=== PATIENT | male | born 1930 | race African-American/Black ===

== ENCOUNTER 2020-08-16 16:07 | Inpatient (IN) | payer MEDICARE, OTHER ==
[2020-08-16] VITALS (12 sets, daily range): BP systolic 90–182; BP diastolic 47–82
[~2020-08-16] VITALS: Ht 188 cm; Wt 65.8 kg
[2020-08-16] MEDS ORDERED: ACETAMINOPHEN 325MG TABLET PO ONE (17:30)
[2020-08-16] MEDS ORDERED: CLONIDINE 0.2MG TABLET PO ONE (17:30)
[2020-08-16 19:34] LABS: BASOPHILS % 1.2 % (0.0-2.0); EOSINOPHILS % 0.1 % (0.0-5.0); HEMOGLOBIN. 13.8 g/dL (14.0-18.0); LYMPHOCYTES % 21.2 % (20.0-50.0); MEAN CORPUSCULAR HEMOGLOBIN 30.3 pg (28.0-32.0); MEAN CORPUSCULAR VOLUME 89.9 fL (80.0-94.0); MEAN PLATELET VOLUME 9.7 fl (7.4-10.4); NEUTROPHILS % 70.5 % (40.0-76.0); PLATELET 210 x1000/uL (130-400); RED BLOOD CELL COUNT 4.56 mill/uL (4.7-6.1); RED CELL DISTRIBUTION WIDTH 15.9 % (11.6-14.6)
[2020-08-16 19:40] LABS: CHLORIDE 106 mEq/L (98-107)
[2020-08-16] MEDS ORDERED: NICARDIPINE 40MG/200ML PREMIX 200 ML IV STA (20:26)
[2020-08-16] MEDS ORDERED: SODIUM CHLORIDE 0.9% 1,000 ML IV ONE (20:30)
[2020-08-16] MEDS ORDERED: LEVETIRACETAM 500MG PREMIX 100 ML IV ONE (20:30)
[2020-08-16 20:43] LABS: PARTIAL THROMBOPLASTIN TIME 27.8 sec (23.4-31.0); PROTHROMBIN TIME 10.9 sec (9.6-11.0)
[2020-08-16] MEDS ORDERED: NICARDIPINE 100 MG in SODIUM CHLORIDE 0.9% 60 ML IV PRN (21:00)
[2020-08-16] MEDS ORDERED: MORPHINE SULFATE 2 MG/ML CPJ (NOT FOR IM USE) IV ONE (21:30)
[2020-08-16] MEDS: DEXT 5%/LACTATED RINGERS 1,000 ML IV SCH (22:36)
[2020-08-16] MEDS: LEVETIRACETAM 500MG PREMIX 100 ML IV SCH (23:46)
[2020-08-17] VITALS (91 sets, daily range): BP systolic 97–152; BP diastolic 42–104
[2020-08-17] MEDS: NICARDIPINE 100 MG in SODIUM CHLORIDE 0.9% 60 ML IV PRN ×2 (00:30→07:09)
[2020-08-17] MEDS: MORPHINE SULFATE 2 MG/ML CPJ (NOT FOR IM USE) IV PRN ×3 (00:31→19:50)
[2020-08-17] MEDS ORDERED: THIAMINE HCL 100 MG in SODIUM CHLORIDE 0.9% 50 ML IV SCH (01:00)
[2020-08-17] MEDS: LEVETIRACETAM 500MG PREMIX 100 ML IV SCH ×2 (08:47→21:53)
[2020-08-17] MEDS: PANTOPRAZOLE SODIUM 40 MG/VIAL IV SCH (08:48)
[2020-08-18] VITALS (73 sets, daily range): BP systolic 111–181; BP diastolic 48–81
[2020-08-18] MEDS: DEXT 5%/LACTATED RINGERS 1,000 ML IV SCH ×3 (00:28→22:45)
[2020-08-18] MEDS: NICARDIPINE 100 MG in SODIUM CHLORIDE 0.9% 60 ML IV PRN (07:48)
[2020-08-18] MEDS: PANTOPRAZOLE SODIUM 40 MG/VIAL IV SCH (08:51)
[2020-08-18] MEDS: LEVETIRACETAM 500MG PREMIX 100 ML IV SCH ×2 (08:52→21:42)
[2020-08-18] MEDS: AMLODIPINE 10MG TABLET PO SCH (15:15)
[2020-08-18] MEDS: MORPHINE SULFATE 2 MG/ML CPJ (NOT FOR IM USE) IV PRN ×2 (15:16→21:46)
[2020-08-18] MEDS: LOSARTAN POTASSIUM 100 MG TABLET PO SCH (15:21)
[2020-08-18] MEDS ORDERED: ONDANSETRON HCL 4MG/2ML INJ IV PRN (19:30)
[2020-08-18] MEDS ORDERED: MAGNESIUM/ALUMINUM HYDROXIDE/SIMETHICONE 30ML UDC PO PRN (19:30)
[2020-08-18] MEDS ORDERED: ACETAMINOPHEN 325MG TABLET PO PRN ×2 (19:30)
[2020-08-18] MEDS: SODIUM CHLORIDE 0.9% INJ 3ML FLUSH IVF SCH (21:44)
[2020-08-19] VITALS (14 sets, daily range): BP systolic 130–175; BP diastolic 48–82
[2020-08-19] MEDS: CLONIDINE 0.1MG TABLET PO PRN ×2 (06:30→13:13)
[2020-08-19] MEDS: SODIUM CHLORIDE 0.9% INJ 3ML FLUSH IVF SCH ×3 (06:31→21:59)
[2020-08-19] MEDS: LOSARTAN POTASSIUM 100 MG TABLET PO SCH (08:03)
[2020-08-19] MEDS: PANTOPRAZOLE SODIUM 40 MG/VIAL IV SCH (08:03)
[2020-08-19] MEDS: AMLODIPINE 10MG TABLET PO SCH (08:03)
[2020-08-19] MEDS: LEVETIRACETAM 500MG PREMIX 100 ML IV SCH ×2 (08:04→21:49)
[2020-08-19 10:07] LABS: HEMATOCRIT 42.5 % (42.0-52.0); HEMOGLOBIN 13.9 g/dL (14.0-18.0); MEAN CORPUSCULAR HEMOGLOBIN 29.6 pg (28.0-32.0); MEAN CORPUSCULAR VOLUME 90.4 fL (80.0-94.0); PLATELET 192 x1000/uL (130-400); RED BLOOD CELL COUNT 4.71 mill/uL (4.7-6.1); RED CELL DISTRIBUTION WIDTH 15.7 % (11.6-14.6)
[2020-08-19] MEDS: THIAMINE HCL 100MG TABLET PO SCH (15:35)
[2020-08-19] MEDS: LORAZEPAM 0.5MG TABLET PO PRN ×2 (17:15→17:21)
[2020-08-19] MEDS: LORAZEPAM 2MG/ML CPJ IV PRN (17:33)
[2020-08-19] MEDS ORDERED: LORAZEPAM 2MG/ML CPJ ONE (17:38)
[2020-08-19] MEDS: HYDRALAZINE HCL 50MG TABLET PO SCH (21:59)
[2020-08-20] VITALS (12 sets, daily range): BP systolic 125–190; BP diastolic 57–115
[2020-08-20] MEDS: SODIUM CHLORIDE 0.9% INJ 3ML FLUSH IVF SCH ×3 (06:16→20:29)
[2020-08-20] MEDS: HYDRALAZINE HCL 50MG TABLET PO SCH ×2 (06:17→13:18)
[2020-08-20] MEDS ORDERED: FAMOTIDINE 20MG/2ML VIAL IV SCH (09:00)
[2020-08-20] MEDS: THIAMINE HCL 100MG TABLET PO SCH (09:50)
[2020-08-20] MEDS: AMLODIPINE 10MG TABLET PO SCH (09:50)
[2020-08-20] MEDS: LOSARTAN POTASSIUM 100 MG TABLET PO SCH (09:50)
[2020-08-20] MEDS: LEVETIRACETAM 500MG PREMIX 100 ML IV SCH (09:50)
[2020-08-20] MEDS: LORAZEPAM 2MG/ML CPJ IV PRN ×2 (11:34→23:26)
[2020-08-20] MEDS: CLONIDINE 0.1MG TABLET PO PRN ×2 (15:14→23:27)
[2020-08-20] MEDS: DIPHENHYDRAMINE 50MG/ML VIAL IV PRN ×2 (15:14→20:48)
[2020-08-20] MEDS: LORAZEPAM 0.5MG TABLET PO PRN (20:27)
[2020-08-20] MEDS: LEVETIRACETAM 500MG TABLET PO SCH (20:28)
[2020-08-20] MEDS: HYDRALAZINE HCL 100MG TABLET PO SCH (21:35)
[2020-08-21] VITALS (11 sets, daily range): BP systolic 143–173; BP diastolic 75–98
[2020-08-21] MEDS: SODIUM CHLORIDE 0.9% INJ 3ML FLUSH IVF SCH ×3 (05:02→21:38)
[2020-08-21] MEDS: HYDRALAZINE HCL 100MG TABLET PO SCH ×3 (05:03→21:29)
[2020-08-21] MEDS: LEVETIRACETAM 500MG PREMIX 100 ML IV SCH (09:49)
[2020-08-21] MEDS: THIAMINE HCL 100MG TABLET PO SCH (09:50)
[2020-08-21] MEDS: FAMOTIDINE 20MG TABLET PO SCH (09:50)
[2020-08-21] MEDS: AMLODIPINE 10MG TABLET PO SCH (09:50)
[2020-08-21] MEDS: LOSARTAN POTASSIUM 100 MG TABLET PO SCH (09:51)
[2020-08-21] MEDS: LEVETIRACETAM 500MG TABLET PO SCH ×2 (09:54→21:29)
[2020-08-21] MEDS ORDERED: IPRATROPIUM/ALBUTEROL 0.5-3(2.5)MG/3ML NEB ONE (14:04)
[2020-08-21 14:17] LABS: BG BASE EXCESS -2.8 mmol/L (-2.0-2.0); BG CARBOXYHEMOGLOBIN 1.3 % (0.5-1.5); BG DEOXYHEMOGLOBIN 8.3 % (0.0-5.0); BG FRACTION INSPIRED OXYGEN 21; BG HCO3 ACT 19.4 mmol/L (22.0-26.0); BG OXYGEN SATURATION 91.6 % (92.0-98.5); BG OXYHEMOGLOBIN 90.4 % (94.0-97.0); BG PCO2 28.3 mmHg (35.0-45.0); BG PH 7.454 (7.350-7.450); BG PO2 57.5 mmHg (75.0-100.0); BG SAMPLE SITE RIGHT BRACHIAL; BG TOTAL HEMOGLOBIN 16.5 g/dL (12.0-18.0); BG VENT MODE ROOM AIR
[2020-08-22] VITALS (12 sets, daily range): BP systolic 119–187; BP diastolic 57–83
[2020-08-22] MEDS: CLONIDINE 0.1MG TABLET PO PRN ×2 (03:00→22:31)
[2020-08-22] MEDS: HYDRALAZINE HCL 100MG TABLET PO SCH ×3 (05:26→21:30)
[2020-08-22] MEDS: SODIUM CHLORIDE 0.9% INJ 3ML FLUSH IVF SCH ×3 (06:12→22:25)
[2020-08-22 07:29] LABS: BASOPHILS % 0.5 % (0.0-2.0); HEMATOCRIT. 44.8 % (42.0-52.0); HEMOGLOBIN. 14.8 g/dL (14.0-18.0); LYMPHOCYTES % 9.5 % (20.0-50.0); MEAN CORPUSCULAR HEMOGLOBIN 29.9 pg (28.0-32.0); MEAN CORPUSCULAR VOLUME 90.2 fL (80.0-94.0); MEAN PLATELET VOLUME 9.8 fl (7.4-10.4); MONOCYTES % 9.3 % (2.0-8.0); NEUTROPHILS % 80.7 % (40.0-76.0); PLATELET 241 x1000/uL (130-400); RED BLOOD CELL COUNT 4.97 mill/uL (4.7-6.1); RED CELL DISTRIBUTION WIDTH 15.8 % (11.6-14.6)
[2020-08-22 07:31] LABS: CHLORIDE 113 mEq/L (98-107)
[2020-08-22] MEDS: LOSARTAN POTASSIUM 100 MG TABLET PO SCH (09:12)
[2020-08-22] MEDS: FAMOTIDINE 20MG TABLET PO SCH (09:12)
[2020-08-22] MEDS: THIAMINE HCL 100MG TABLET PO SCH (09:12)
[2020-08-22] MEDS: AMLODIPINE 10MG TABLET PO SCH (09:13)
[2020-08-22] MEDS: LEVETIRACETAM 500MG TABLET PO SCH ×2 (11:10→22:25)
[2020-08-22] MEDS ORDERED: POTASSIUM CHLORIDE 20MEQ TABLET SR PO NR (14:00)
[2020-08-22] MEDS: LORAZEPAM 2MG/ML CPJ IV PRN (14:31)
[2020-08-23] VITALS (12 sets, daily range): BP systolic 127–154; BP diastolic 56–83
[2020-08-23] MEDS: HYDRALAZINE HCL 100MG TABLET PO SCH ×3 (05:24→21:14)
[2020-08-23] MEDS: SODIUM CHLORIDE 0.9% INJ 3ML FLUSH IVF SCH ×3 (05:24→21:14)
[2020-08-23] MEDS: THIAMINE HCL 100MG TABLET PO SCH (08:39)
[2020-08-23] MEDS: FAMOTIDINE 20MG TABLET PO SCH (08:40)
[2020-08-23] MEDS: AMLODIPINE 10MG TABLET PO SCH (08:40)
[2020-08-23] MEDS: LEVETIRACETAM 500MG TABLET PO SCH ×2 (08:40→21:14)
[2020-08-23] MEDS: LOSARTAN POTASSIUM 100 MG TABLET PO SCH (08:41)
[2020-08-23] MEDS: POTASSIUM CHLORIDE INJ 40 MEQ in DEXT 5%/0.2% NACL 1,000 ML IV SCH ×2 (15:17→21:14)
[2020-08-24] VITALS (32 sets, daily range): BP systolic 108–165; BP diastolic 47–79
[2020-08-24] MEDS: POTASSIUM CHLORIDE INJ 40 MEQ in DEXT 5%/0.2% NACL 1,000 ML IV SCH ×2 (05:39→16:46)
[2020-08-24] MEDS: HYDRALAZINE HCL 100MG TABLET PO SCH (05:40)
[2020-08-24] MEDS: LEVETIRACETAM 500MG TABLET PO SCH (11:27)
[2020-08-24] MEDS: FAMOTIDINE 20MG TABLET PO SCH (11:27)
[2020-08-24] MEDS: LOSARTAN POTASSIUM 100 MG TABLET PO SCH (11:27)
[2020-08-24] MEDS: AMLODIPINE 10MG TABLET PO SCH (11:27)
[2020-08-24] MEDS: THIAMINE HCL 100MG TABLET PO SCH (11:27)
[2020-08-24] MEDS: PIPERACILLIN/TAZOBACTAM 2.25 G in DEXTROSE 5% WATER 50 ML IV SCH (18:00)
[2020-08-24] MEDS ORDERED: LIDOCAINE HCL/PF 1% 10 MG/ML 5ML VIAL ONE (18:28)
[2020-08-24] MEDS ORDERED: ETOMIDATE 2MG/ML 10ML VIAL IV ONE (18:28)
[2020-08-24] MEDS ORDERED: PHENYLEPHRINE HCL 10 MG/ML 1ML (IV VIAL) IV ONE (18:40)
[2020-08-24] MEDS ORDERED: ROCURONIUM BROMIDE 10MG/ML VIAL 5ML IV ONE (18:49)
[2020-08-24] MEDS ORDERED: SUCCINYLCHOLINE CHLORIDE 200MG/10ML IV ONE (18:50)
[2020-08-24] MEDS ORDERED: MIDAZOLAM HCL 2 MG/2 ML VIAL ONE ×3 (18:55→20:24)
[2020-08-24] MEDS ORDERED: FENTANYL CITRATE/PF 50MCG/ML 2ML VIAL ONE (18:55)
[2020-08-24] MEDS ORDERED: BACITRACIN 50,000 UNITS/VIAL ONE ×2 (19:22→19:53)
[2020-08-24] MEDS ORDERED: ALBUMIN HUMAN 12.5G/250ML (5%) IV ONE (19:29)
[2020-08-24] MEDS ORDERED: EPHEDRINE SULFATE 50MG/ML VIAL ONE (19:45)
[2020-08-24] MEDS ORDERED: SODIUM CHLORIDE 0.9% 10ML VIAL ONE (19:45)
[2020-08-24] MEDS ORDERED: SODIUM CHLORIDE 0.9% INJ 10ML FLUSH IVF ONE (19:53)
[2020-08-24] MEDS ORDERED: PIPERACILLIN/TAZOBACTAM 3.375 G/VIAL IV SCH (22:00)
[2020-08-24] MEDS: PANTOPRAZOLE SODIUM 40 MG/VIAL IV SCH (23:29)
[2020-08-25] VITALS (95 sets, daily range): BP systolic 103–150; BP diastolic 51–78
[2020-08-25] MEDS: LEVETIRACETAM 500MG PREMIX 100 ML IV SCH ×3 (00:28→20:53)
[2020-08-25] MEDS: POTASSIUM CHLORIDE INJ 40 MEQ in DEXT 5%/0.2% NACL 1,000 ML IV SCH ×2 (00:29→10:18)
[2020-08-25] MEDS: MORPHINE SULFATE 4 MG/ML CPJ (NOT FOR IM USE) IV PRN (00:42)
[2020-08-25 00:48] LABS: BG BASE EXCESS -7.7 mmol/L (-2.0-2.0); BG CARBOXYHEMOGLOBIN 0.3 % (0.5-1.5); BG DEOXYHEMOGLOBIN 1.2 % (0.0-5.0); BG FRACTION INSPIRED OXYGEN 50; BG METHEMOGLOBIN 0.4 % (0.0-1.5); BG OXYGEN SATURATION 98.8 % (92.0-98.5); BG OXYHEMOGLOBIN 98.1 % (94.0-97.0); BG PCO2 28.4 mmHg (35.0-45.0); BG PO2 148.8 mmHg (75.0-100.0); BG SAMPLE SITE LEFT RADIAL; BG TOTAL HEMOGLOBIN 14.3 g/dL (12.0-18.0); BG VENT MODE VENT - AC
[2020-08-25] MEDS: PIPERACILLIN/TAZOBACTAM 2.25 G in DEXTROSE 5% WATER 50 ML IV SCH ×4 (03:07→18:11)
[2020-08-25] MEDS: METRONIDAZOLE 500 MG PREMIX 100 ML IV SCH ×3 (03:40→18:11)
[2020-08-25] MEDS: PROPOFOL 10MG/ML 100ML 100 ML IV PRN ×2 (03:47→20:57)
[2020-08-25 06:29] LABS: HEMATOCRIT. 39.9 % (42.0-52.0); MEAN CORPUSCULAR HEMOGLOBIN 29.4 pg (28.0-32.0); MEAN CORPUSCULAR VOLUME 90.3 fL (80.0-94.0); MEAN PLATELET VOLUME 9.9 fl (7.4-10.4); PLATELET 293 x1000/uL (130-400); RED BLOOD CELL COUNT 4.41 mill/uL (4.7-6.1)
[2020-08-25 09:25] LABS: BG BASE EXCESS -7.3 mmol/L (-2.0-2.0); BG CARBOXYHEMOGLOBIN 0.4 % (0.5-1.5); BG DEOXYHEMOGLOBIN 0.8 % (0.0-5.0); BG FRACTION INSPIRED OXYGEN 40; BG HCO3 ACT 16.2 mmol/L (22.0-26.0); BG METHEMOGLOBIN 0.3 % (0.0-1.5); BG OXYGEN SATURATION 99.2 % (92.0-98.5); BG OXYHEMOGLOBIN 98.5 % (94.0-97.0); BG PCO2 27.9 mmHg (35.0-45.0); BG PH 7.383 (7.350-7.450); BG PO2 148.6 mmHg (75.0-100.0); BG SAMPLE SITE RIGHT RADIAL; BG TOTAL HEMOGLOBIN 13.6 g/dL (12.0-18.0); BG VENT MODE VENT - AC
[2020-08-25] MEDS: PANTOPRAZOLE SODIUM 40 MG/VIAL IV SCH ×2 (10:18→20:52)
[2020-08-25] MEDS: DEXT 5%/0.45% NACL 1000ML 1,000 ML IV SCH ×2 (13:01→18:04)
[2020-08-25 16:49] LABS: PLATELET ESTIMATE NORMAL
[2020-08-25] MEDS: ENOXAPARIN 30MG/0.3ML SYR SUBCUT SCH (20:54)
[2020-08-26] VITALS (91 sets, daily range): BP systolic 107–163; BP diastolic 47–114
[2020-08-26] MEDS: PIPERACILLIN/TAZOBACTAM 2.25 G in DEXTROSE 5% WATER 50 ML IV SCH ×2 (00:32→06:11)
[2020-08-26] MEDS: METRONIDAZOLE 500 MG PREMIX 100 ML IV SCH ×3 (02:30→18:16)
[2020-08-26] MEDS: DEXT 5%/0.45% NACL 1000ML 1,000 ML IV SCH ×3 (04:00→19:15)
[2020-08-26 06:46] LABS: MEAN CORPUSCULAR HEMOGLOBIN 29.5 pg (28.0-32.0); MEAN CORPUSCULAR VOLUME 90.5 fL (80.0-94.0); MEAN PLATELET VOLUME 9.7 fl (7.4-10.4); PLATELET 275 x1000/uL (130-400); RED BLOOD CELL COUNT 4.41 mill/uL (4.7-6.1)
[2020-08-26 06:51] LABS: CHLORIDE 118 mEq/L (98-107)
[2020-08-26 07:02] LABS: PHOSPHORUS 2.7 mg/dL (2.5-4.9)
[2020-08-26] MEDS: PANTOPRAZOLE SODIUM 40 MG/VIAL IV SCH ×2 (08:43→22:01)
[2020-08-26] MEDS: LEVETIRACETAM 500MG PREMIX 100 ML IV SCH ×2 (08:44→22:01)
[2020-08-26 09:27] LABS: BG BASE EXCESS -7.4 mmol/L (-2.0-2.0); BG CARBOXYHEMOGLOBIN 0.2 % (0.5-1.5); BG FRACTION INSPIRED OXYGEN 40; BG HCO3 ACT 16.6 mmol/L (22.0-26.0); BG OXYHEMOGLOBIN 98.8 % (94.0-97.0); BG PH 7.362 (7.350-7.450); BG PO2 144.1 mmHg (75.0-100.0); BG SAMPLE SITE RIGHT RADIAL; BG TOTAL HEMOGLOBIN 13.7 g/dL (12.0-18.0); BG TOTAL RESPIRATORY RATE 17 b/min; BG VENT MODE VENT - AC
[2020-08-26] MEDS ORDERED: PROPOFOL 10MG/ML 100ML 100 ML IV PRN (11:54)
[2020-08-26] MEDS: PROPOFOL 10MG/ML 100ML 100 ML IV PRN (12:16)
[2020-08-26] MEDS ORDERED: SODIUM POLYSTYRENE SULFONATE 15 G/60 ML BOT NG NR (13:00)
[2020-08-26] MEDS ORDERED: MEROPENEM 1,000 MG in SODIUM CHLORIDE 0.9% 100 ML IV SCH (14:00)
[2020-08-26] MEDS: MICAFUNGIN 100 MG in SODIUM CHLORIDE 0.9% 100 ML IV SCH (14:13)
[2020-08-26] MEDS: MORPHINE SULFATE 4 MG/ML CPJ (NOT FOR IM USE) IV PRN (15:19)
[2020-08-26 15:39] LABS: PLATELET ESTIMATE NORMAL
[2020-08-26] MEDS: ENOXAPARIN 30MG/0.3ML SYR SUBCUT SCH (22:01)
[2020-08-27] VITALS (84 sets, daily range): BP systolic 136–191; BP diastolic 56–117
[2020-08-27] MEDS: MEROPENEM 1000MG in NORMAL SALINE 100ML IV SCH ×2 (01:01→12:39)
[2020-08-27 01:14] LABS: BG BASE EXCESS -6.9 mmol/L (-2.0-2.0); BG CARBOXYHEMOGLOBIN 0.4 % (0.5-1.5); BG DEOXYHEMOGLOBIN 0.5 % (0.0-5.0); BG FRACTION INSPIRED OXYGEN 100; BG HCO3 ACT 17.7 mmol/L (22.0-26.0); BG METHEMOGLOBIN 0.4 % (0.0-1.5); BG OXYGEN SATURATION 99.5 % (92.0-98.5); BG OXYHEMOGLOBIN 98.7 % (94.0-97.0); BG PCO2 33.1 mmHg (35.0-45.0); BG PH 7.346 (7.350-7.450); BG SAMPLE SITE RIGHT RADIAL; BG VENT MODE MASK - NRB
[2020-08-27] MEDS: METRONIDAZOLE 500 MG PREMIX 100 ML IV SCH ×2 (02:05→12:41)
[2020-08-27] MEDS: DEXT 5%/0.45% NACL 1000ML 1,000 ML IV SCH ×2 (03:15→09:40)
[2020-08-27 07:06] LABS: HEMATOCRIT. 40.3 % (42.0-52.0); HEMOGLOBIN. 13.1 g/dL (14.0-18.0); MEAN CORPUSCULAR HEMOGLOBIN 29.3 pg (28.0-32.0); MEAN CORPUSCULAR VOLUME 90.2 fL (80.0-94.0); MEAN PLATELET VOLUME 9.3 fl (7.4-10.4); PLATELET 333 x1000/uL (130-400); RED BLOOD CELL COUNT 4.47 mill/uL (4.7-6.1)
[2020-08-27] MEDS: PANTOPRAZOLE SODIUM 40 MG/VIAL IV SCH ×2 (09:21→21:08)
[2020-08-27] MEDS: LEVETIRACETAM 500MG PREMIX 100 ML IV SCH ×2 (09:21→23:03)
[2020-08-27] MEDS: MORPHINE SULFATE 4 MG/ML CPJ (NOT FOR IM USE) IV PRN (09:46)
[2020-08-27] MEDS: MICAFUNGIN 100 MG in SODIUM CHLORIDE 0.9% 100 ML IV SCH (12:39)
[2020-08-27] MEDS: DEXT 5%/0.2% NACL 1,000 ML IV SCH ×2 (12:39→23:04)
[2020-08-27] MEDS: HYDRALAZINE 20MG/ML VIAL IV PRN ×2 (12:40→21:33)
[2020-08-27 13:46] LABS: BG BASE EXCESS -3.8 mmol/L (-2.0-2.0); BG CARBOXYHEMOGLOBIN 0.3 % (0.5-1.5); BG DEOXYHEMOGLOBIN 2.8 % (0.0-5.0); BG FRACTION INSPIRED OXYGEN 60; BG METHEMOGLOBIN 0.4 % (0.0-1.5); BG OXYGEN SATURATION 97.2 % (92.0-98.5); BG OXYHEMOGLOBIN 96.5 % (94.0-97.0); BG PCO2 32.6 mmHg (35.0-45.0); BG PH 7.405 (7.350-7.450); BG PO2 87.6 mmHg (75.0-100.0); BG SAMPLE SITE RIGHT RADIAL; BG TOTAL HEMOGLOBIN 13.9 g/dL (12.0-18.0); BG VENT MODE COOL AEROSOL
[2020-08-27] MEDS: CLONIDINE HCL 0.1MG/24HR PATCH TD SCH (14:06)
[2020-08-27 18:24] LABS: PLATELET ESTIMATE NORMAL
[2020-08-27] MEDS: ENOXAPARIN 30MG/0.3ML SYR SUBCUT SCH (21:08)
[2020-08-28] VITALS (13 sets, daily range): BP systolic 122–162; BP diastolic 58–88
[2020-08-28] MEDS: MEROPENEM 1000MG in NORMAL SALINE 100ML IV SCH ×3 (00:16→23:12)
[2020-08-28] MEDS: METRONIDAZOLE 500 MG PREMIX 100 ML IV SCH ×4 (02:24→18:10)
[2020-08-28] MEDS: DEXT 5%/0.2% NACL 1,000 ML IV SCH ×2 (08:15→21:37)
[2020-08-28] MEDS: PANTOPRAZOLE SODIUM 40 MG/VIAL IV SCH ×2 (08:46→21:37)
[2020-08-28] MEDS: HYDRALAZINE 20MG/ML VIAL IV PRN (08:47)
[2020-08-28] MEDS: LEVETIRACETAM 500MG PREMIX 100 ML IV SCH ×2 (08:48→21:37)
[2020-08-28 09:34] LABS: HEMATOCRIT. 45.7 % (42.0-52.0); HEMOGLOBIN. 14.7 g/dL (14.0-18.0); MEAN CORPUSCULAR HEMOGLOBIN 28.5 pg (28.0-32.0); MEAN CORPUSCULAR VOLUME 88.7 fL (80.0-94.0); MEAN PLATELET VOLUME 9.7 fl (7.4-10.4); PLATELET 342 x1000/uL (130-400); RED BLOOD CELL COUNT 5.15 mill/uL (4.7-6.1); RED CELL DISTRIBUTION WIDTH 15.8 % (11.6-14.6)
[2020-08-28 09:44] LABS: CHLORIDE 113 mEq/L (98-107)
[2020-08-28 09:49] LABS: PHOSPHORUS 1.4 mg/dL (2.5-4.9)
[2020-08-28] MEDS: FLUCONAZOLE 400MG/200ML BAG 200 ML IV SCH (11:14)
[2020-08-28] MEDS ORDERED: SODIUM PHOS,M-BASIC-D-BASIC 30 MM in DEXT 5% WATER 500 ML IV SCH (15:00)
[2020-08-28 17:41] LABS: PLATELET ESTIMATE NORMAL
[2020-08-28] MEDS: ENOXAPARIN 40MG/0.4ML SYR SUBCUT SCH (21:38)
[2020-08-28] MEDS: MORPHINE SULFATE 4 MG/ML CPJ (NOT FOR IM USE) IV PRN (23:39)
[2020-08-29] VITALS (11 sets, daily range): BP systolic 130–161; BP diastolic 66–89
[2020-08-29] MEDS: METRONIDAZOLE 500 MG PREMIX 100 ML IV SCH ×2 (01:40→09:23)
[2020-08-29 08:07] LABS: BASOPHILS % 0.5 % (0.0-2.0); EOSINOPHILS % 0.9 % (0.0-5.0); HEMATOCRIT. 41.7 % (42.0-52.0); HEMOGLOBIN. 13.8 g/dL (14.0-18.0); LYMPHOCYTES % 8.5 % (20.0-50.0); MEAN CORPUSCULAR HEMOGLOBIN 29.4 pg (28.0-32.0); MEAN PLATELET VOLUME 9.4 fl (7.4-10.4); MONOCYTES % 5.8 % (2.0-8.0); NEUTROPHILS % 84.3 % (40.0-76.0); PLATELET 344 x1000/uL (130-400); RED BLOOD CELL COUNT 4.68 mill/uL (4.7-6.1); RED CELL DISTRIBUTION WIDTH 15.9 % (11.6-14.6)
[2020-08-29 08:35] LABS: CHLORIDE 110 mEq/L (98-107)
[2020-08-29] MEDS: LEVETIRACETAM 500MG PREMIX 100 ML IV SCH ×2 (08:57→20:44)
[2020-08-29] MEDS: PANTOPRAZOLE SODIUM 40 MG/VIAL IV SCH ×2 (08:57→20:46)
[2020-08-29] MEDS: DEXT 5%/0.2% NACL 1,000 ML IV SCH (11:13)
[2020-08-29] MEDS: MEROPENEM 1000MG in NORMAL SALINE 100ML IV SCH (11:37)
[2020-08-29] MEDS ORDERED: POTASSIUM CHLORIDE 20MEQ/PACKET PO SCH (12:30)
[2020-08-29] MEDS: FLUCONAZOLE 400MG/200ML BAG 200 ML IV SCH ×2 (17:09→17:10)
[2020-08-29] MEDS: PIPERACILLIN/TAZOBACTAM 3.375 G in DEXT 5% WATER 100 ML IV SCH ×2 (17:51→23:53)
[2020-08-29] MEDS: ENOXAPARIN 40MG/0.4ML SYR SUBCUT SCH (20:45)
[2020-08-29] MEDS: DIPHENHYDRAMINE 50MG/ML VIAL IV PRN (22:04)
[2020-08-30] VITALS (13 sets, daily range): BP systolic 126–159; BP diastolic 64–85
[2020-08-30] MEDS: PIPERACILLIN/TAZOBACTAM 3.375 G in DEXT 5% WATER 100 ML IV SCH ×4 (05:36→23:50)
[2020-08-30 08:58] LABS: HEMATOCRIT. 44.3 % (42.0-52.0); HEMOGLOBIN. 14.3 g/dL (14.0-18.0); MEAN CORPUSCULAR VOLUME 89.8 fL (80.0-94.0); PLATELET 331 x1000/uL (130-400); RED BLOOD CELL COUNT 4.93 mill/uL (4.7-6.1); RED CELL DISTRIBUTION WIDTH 16.3 % (11.6-14.6)
[2020-08-30] MEDS: LEVETIRACETAM 500MG PREMIX 100 ML IV SCH (08:58)
[2020-08-30] MEDS: PANTOPRAZOLE SODIUM 40 MG/VIAL IV SCH (08:58)
[2020-08-30 09:08] LABS: CHLORIDE 111 mEq/L (98-107)
[2020-08-30 09:26] LABS: PHOSPHORUS 2.6 mg/dL (2.5-4.9)
[2020-08-30] MEDS ORDERED: DIATR MEGLU/DIATRIZOATE SOLN 30ML PO SCH (10:15)
[2020-08-30 17:01] LABS: PLATELET ESTIMATE NORMAL
[2020-08-30 17:24] LABS: CHLORIDE 110 mEq/L (98-107)
[2020-08-30] MEDS: FLUCONAZOLE 400MG/200ML BAG 200 ML IV SCH (18:04)
[2020-08-30] MEDS: LEVETIRACETAM 500MG TABLET PO SCH (20:47)
[2020-08-30] MEDS: ENOXAPARIN 40MG/0.4ML SYR SUBCUT SCH (20:47)
[2020-08-30] MEDS: OMEPRAZOLE 20MG CAPSULE EXTENDED RELEASE PO SCH (20:47)
[2020-08-31] VITALS (11 sets, daily range): BP systolic 135–160; BP diastolic 65–90
[2020-08-31] MEDS: HYDRALAZINE 20MG/ML VIAL IV PRN (05:23)
[2020-08-31] MEDS: PIPERACILLIN/TAZOBACTAM 3.375 G in DEXT 5% WATER 100 ML IV SCH ×3 (05:23→17:51)
[2020-08-31 07:12] LABS: HEMATOCRIT. 44.9 % (42.0-52.0); HEMOGLOBIN. 14.7 g/dL (14.0-18.0); MEAN CORPUSCULAR HEMOGLOBIN 28.9 pg (28.0-32.0); MEAN CORPUSCULAR VOLUME 88.3 fL (80.0-94.0); PLATELET 341 x1000/uL (130-400); RED BLOOD CELL COUNT 5.08 mill/uL (4.7-6.1); RED CELL DISTRIBUTION WIDTH 15.9 % (11.6-14.6)
[2020-08-31 07:26] LABS: CHLORIDE 109 mEq/L (98-107)
[2020-08-31] MEDS ORDERED: IOHEXOL-300 100 ML BOTTLE ONE (08:57)
[2020-08-31] MEDS: LEVETIRACETAM 500MG TABLET PO SCH ×2 (09:50→20:14)
[2020-08-31] MEDS: OMEPRAZOLE 20MG CAPSULE EXTENDED RELEASE PO SCH ×2 (09:50→20:14)
[2020-08-31] MEDS: DIPHENHYDRAMINE 50MG/ML VIAL IV PRN (16:41)
[2020-08-31] MEDS: FLUCONAZOLE 400MG/200ML BAG 200 ML IV SCH (18:05)
[2020-08-31 23:28] LABS: PLATELET ESTIMATE NORMAL
[2020-09-01] VITALS (11 sets, daily range): BP systolic 127–161; BP diastolic 59–89
[2020-09-01] MEDS: PIPERACILLIN/TAZOBACTAM 3.375 G in DEXT 5% WATER 100 ML IV SCH ×5 (00:44→23:27)
[2020-09-01 07:29] LABS: CHLORIDE 108 mEq/L (98-107)
[2020-09-01 07:35] LABS: PHOSPHORUS 2.3 mg/dL (2.5-4.9)
[2020-09-01 07:51] LABS: BASOPHILS % 0.4 % (0.0-2.0); EOSINOPHILS % 0.4 % (0.0-5.0); HEMATOCRIT. 45.5 % (42.0-52.0); HEMOGLOBIN. 14.8 g/dL (14.0-18.0); LYMPHOCYTES % 9.9 % (20.0-50.0); MEAN CORPUSCULAR VOLUME 89.1 fL (80.0-94.0); MEAN PLATELET VOLUME 9.7 fl (7.4-10.4); MONOCYTES % 6.6 % (2.0-8.0); NEUTROPHILS % 82.7 % (40.0-76.0); PLATELET 383 x1000/uL (130-400); RED BLOOD CELL COUNT 5.11 mill/uL (4.7-6.1); RED CELL DISTRIBUTION WIDTH 16.4 % (11.6-14.6)
[2020-09-01] MEDS: LEVETIRACETAM 500MG TABLET PO SCH ×2 (09:43→21:30)
[2020-09-01] MEDS: OMEPRAZOLE 20MG CAPSULE EXTENDED RELEASE PO SCH ×2 (09:43→21:30)
[2020-09-01] MEDS ORDERED: SODIUM PHOS,M-BASIC-D-BASIC 15 MM in DEXT 5% WATER 250 ML IV SCH (10:00)
[2020-09-01] MEDS ORDERED: SODIUM CHLORIDE IV NR (12:00)
[2020-09-01] MEDS ORDERED: SODIUM PHOS M BASIC D BASIC IV NR (12:00)
[2020-09-01] MEDS ORDERED: LIDOCAINE HCL 1% 20ML VIAL (Pyxis) INJ ONE (14:15)
[2020-09-01] MEDS ORDERED: SODIUM BICARBONATE 4% (2.4MEQ) 5ML VIAL IV ONE (14:15)
[2020-09-01] MEDS: FLUCONAZOLE 400MG/200ML BAG 200 ML IV SCH (18:38)
[2020-09-01 19:29] LABS: INR 1.2; PROTHROMBIN TIME 12.3 sec (9.6-11.0)
[2020-09-02] VITALS (12 sets, daily range): BP systolic 127–161; BP diastolic 61–100
[2020-09-02] MEDS: PIPERACILLIN/TAZOBACTAM 3.375 G in DEXT 5% WATER 100 ML IV SCH ×4 (04:32→23:28)
[2020-09-02] MEDS: OMEPRAZOLE 20MG CAPSULE EXTENDED RELEASE PO SCH ×2 (05:32→20:10)
[2020-09-02 06:55] LABS: HEMATOCRIT. 39.1 % (42.0-52.0); MEAN CORPUSCULAR HEMOGLOBIN 29.5 pg (28.0-32.0); MEAN CORPUSCULAR VOLUME 89.1 fL (80.0-94.0); MEAN PLATELET VOLUME 9.5 fl (7.4-10.4); PLATELET 385 x1000/uL (130-400); RED BLOOD CELL COUNT 4.39 mill/uL (4.7-6.1); RED CELL DISTRIBUTION WIDTH 16.2 % (11.6-14.6)
[2020-09-02 07:20] LABS: CHLORIDE 111 mEq/L (98-107)
[2020-09-02] MEDS: LEVETIRACETAM 500MG TABLET PO SCH ×2 (08:57→20:10)
[2020-09-02] MEDS ORDERED: LIDOCAINE HCL 1% 20ML VIAL (Pyxis) INJ ONE (09:41)
[2020-09-02] MEDS ORDERED: SODIUM BICARBONATE 4% (2.4MEQ) 5ML VIAL IV ONE (09:41)
[2020-09-02 17:46] LABS: PLATELET ESTIMATE NORMAL
[2020-09-02] MEDS: ENOXAPARIN 40MG/0.4ML SYR SUBCUT SCH (20:12)
[2020-09-03] VITALS (12 sets, daily range): BP systolic 138–154; BP diastolic 68–84
[2020-09-03] MEDS: PIPERACILLIN/TAZOBACTAM 3.375 G in DEXT 5% WATER 100 ML IV SCH ×3 (04:51→18:49)
[2020-09-03] MEDS: OMEPRAZOLE 20MG CAPSULE EXTENDED RELEASE PO SCH ×2 (04:52→20:05)
[2020-09-03 07:19] LABS: CHLORIDE 108 mEq/L (98-107)
[2020-09-03 07:23] LABS: PHOSPHORUS 2.3 mg/dL (2.5-4.9)
[2020-09-03 07:25] LABS: BASOPHILS % 0.9 % (0.0-2.0); EOSINOPHILS % 0.6 % (0.0-5.0); HEMATOCRIT. 37.9 % (42.0-52.0); HEMOGLOBIN. 12.5 g/dL (14.0-18.0); MEAN CORPUSCULAR HEMOGLOBIN 28.8 pg (28.0-32.0); MEAN CORPUSCULAR VOLUME 87.7 fL (80.0-94.0); MEAN PLATELET VOLUME 9.2 fl (7.4-10.4); MONOCYTES % 7.6 % (2.0-8.0); NEUTROPHILS % 76.9 % (40.0-76.0); PLATELET 420 x1000/uL (130-400); RED BLOOD CELL COUNT 4.33 mill/uL (4.7-6.1)
[2020-09-03] MEDS ORDERED: FLUCONAZOLE 100MG TABLET PO SCH (09:00)
[2020-09-03] MEDS: LEVETIRACETAM 500MG TABLET PO SCH ×2 (09:24→20:04)
[2020-09-03] MEDS: CLONIDINE HCL 0.1MG/24HR PATCH TD SCH (10:41)
[2020-09-03] MEDS ORDERED: POTASSIUM PHOS,M-BASIC-D-BASIC 20 MMOL in DEXT 5% WATER 243.3333 ML IV SCH (13:00)
[2020-09-03] MEDS ORDERED: MAGNESIUM 2 G PREMIX 50 ML IV SCH (13:00)
[2020-09-03] MEDS: ENOXAPARIN 40MG/0.4ML SYR SUBCUT SCH (20:05)
[2020-09-04] MEDS ORDERED: THIAMINE HCL 100MG TABLET PO SCH (09:00)
[2020-09-04] MEDS ORDERED: MULTIVITAMINS,THER W-MINERALS TABLET PO SCH (09:00)
[2020-09-04] MEDS ORDERED: FOLIC ACID 1MG TABLET PO SCH (09:00)
== END 2020-09-03 21:30 | DRG 853 ==
LOC: ER 16:07 → 5EST 21:19 → 3WST 08-18 17:16 → 5EST 08-24 21:40
PROVIDERS: ADMIT Internal Medicine; ATTEND Internal Medicine
PROC: 0D1B0Z4 Bypass Ileum to Cutaneous, Open Approach (ICD-10-PCS; principal; 2020-08-24)
PROC: 0DTF0ZZ Resection of Right Large Intestine, Open Approach (ICD-10-PCS; 2020-08-24)
PROC: 0W9G3ZZ Drainage of Peritoneal Cavity, Percutaneous Approach (ICD-10-PCS; 2020-09-02)
PROC: 05HY33Z Insertion of Infusion Device into Upper Vein, Percutaneous Approach (ICD-10-PCS; 2020-09-02)
PROC: B54MZZA Ultrasonography of Right Upper Extremity Veins, Guidance (ICD-10-PCS; 2020-09-02)
PROC: 5A1945Z Respiratory Ventilation, 24-96 Consecutive Hours (ICD-10-PCS; 2020-09-02)
PROC: 0BH18EZ Insertion of Endotracheal Airway into Trachea, Via Natural or Artificial Opening Endoscopic (ICD-10-PCS; 2020-09-02)
DX: A41.9 Sepsis, unspecified organism (principal); K63.1 Perforation of intestine (nontraumatic); S06.5X9A Traumatic subdural hemorrhage with loss of consciousness of unspecified duration, initial encounter; G93.41 Metabolic encephalopathy; J96.90 Respiratory failure, unspecified, unspecified whether with hypoxia or hypercapnia; N17.0 Acute kidney failure with tubular necrosis; K65.9 Peritonitis, unspecified; S22.41XA Multiple fractures of ribs, right side, initial encounter for closed fracture; E87.0 Hyperosmolality and hypernatremia; E87.1 Hypo-osmolality and hyponatremia; J90 Pleural effusion, not elsewhere classified; N17.9 Acute kidney failure, unspecified; Q43.8 Other specified congenital malformations of intestine; R18.8 Other ascites; B37.89 Other sites of candidiasis; M16.11 Unilateral primary osteoarthritis, right hip; F10.20 Alcohol dependence, uncomplicated; I10 Essential (primary) hypertension; F03.90 Unspecified dementia, unspecified severity, without behavioral disturbance, psychotic disturbance, mood disturbance, and anxiety; F80.9 Developmental disorder of speech and language, unspecified; I12.9 Hypertensive chronic kidney disease with stage 1 through stage 4 chronic kidney disease, or unspecified chronic kidney disease; K40.90 Unilateral inguinal hernia, without obstruction or gangrene, not specified as recurrent; N18.30 Chronic kidney disease, stage 3 unspecified; R65.20 Severe sepsis without septic shock; W18.39XA Other fall on same level, initial encounter; Z20.828 Contact with and (suspected) exposure to other viral communicable diseases; R53.81 Other malaise; E83.39 Other disorders of phosphorus metabolism; Z87.891 Personal history of nicotine dependence; Z93.3 Colostomy status; Y93.89 Activity, other specified; Y92.89 Other specified places as the place of occurrence of the external cause; Z87.820 Personal history of traumatic brain injury; Y99.8 Other external cause status; Z79.899 Other long term (current) drug therapy; B96.1 Klebsiella pneumoniae [K. pneumoniae] as the cause of diseases classified elsewhere
CPT/HCPCS: 36415; 36600; 71045; 71101; 73502; 74018; 74176; 74177; 76770; 76937; 76942; 80048; 80053; 82140; 82375; 82805; 83735; 83935; 84100; 84478; 84484; 85025; 85027; 86850; 86900; 87070; 87075; 87077; 87106; 87186; 87426; 88108; 88307; 92610; 93005; 94003; 96365; 97110; 97116; 97162; 97164; 97166; 97168; 97530; 97535; 99291; C1725; C1893; C9113; J0330; J0360; J1200; J1450; J1650; J1953; J2060; J2185; J2248; J2250; J2270; J2370; J2543; J2704; J3010; J3411; J3475; J3480; J3490; J7030; J7040; J7050; J7060; P9041; Q9963; Q9967

== ENCOUNTER 2020-09-03 21:10 | Inpatient (IN) | payer MEDICARE, OTHER ==
[~2020-09-03] VITALS: Ht 188 cm; Wt 65.8 kg
[2020-09-03 21:10] VITALS: BP 141/84
[2020-09-03 22:00] VITALS: BP_SYST 141; BP_SYST 165; BP_DIAS 68; BP_DIAS 76
[2020-09-03] MEDS ORDERED: MAGNESIUM/ALUMINUM HYDROXIDE/SIMETHICONE 30ML UDC PO PRN (22:30)
[2020-09-03] MEDS ORDERED: DIPHENHYDRAMINE 50MG/ML VIAL IV PRN (22:30)
[2020-09-03] MEDS ORDERED: HYDRALAZINE 10 MG in SODIUM CHLORIDE 0.9% 49.5 ML IV PRN (22:45)
[2020-09-04] VITALS: BP 136/62
[2020-09-04] MEDS ORDERED: HYDRALAZINE 20MG/ML VIAL IV SCH
[2020-09-04] MEDS: PIPERACILLIN/TAZOBACTAM 3.375 G in DEXT 5% WATER 100 ML IV SCH ×4 (02:41→18:15)
[2020-09-04 04:00] VITALS: BP 144/67
[2020-09-04 06:31] LABS: CHLORIDE 110 mEq/L (98-107)
[2020-09-04 06:37] LABS: BASOPHILS % 0.7 % (0.0-2.0); EOSINOPHILS % 0.7 % (0.0-5.0); HEMATOCRIT. 37.9 % (42.0-52.0); HEMOGLOBIN. 12.6 g/dL (14.0-18.0); LYMPHOCYTES % 9.7 % (20.0-50.0); MEAN CORPUSCULAR HEMOGLOBIN 29.3 pg (28.0-32.0); MEAN CORPUSCULAR VOLUME 87.8 fL (80.0-94.0); MONOCYTES % 6.1 % (2.0-8.0); NEUTROPHILS % 82.8 % (40.0-76.0); PLATELET 434 x1000/uL (130-400); RED BLOOD CELL COUNT 4.31 mill/uL (4.7-6.1); RED CELL DISTRIBUTION WIDTH 15.9 % (11.6-14.6)
[2020-09-04 08:00] VITALS: BP 138/72
[2020-09-04] MEDS: LEVETIRACETAM 500MG TABLET PO SCH ×2 (09:39→20:53)
[2020-09-04] MEDS: FLUCONAZOLE 100MG TABLET PO SCH (09:39)
[2020-09-04] MEDS: OMEPRAZOLE 20MG CAPSULE EXTENDED RELEASE PO SCH ×2 (09:39→20:53)
[2020-09-04 20:00] VITALS: BP 133/72
[2020-09-04] MEDS: ENOXAPARIN 40MG/0.4ML SYR SUBCUT SCH (20:53)
[2020-09-05] MEDS: PIPERACILLIN/TAZOBACTAM 3.375 G in DEXT 5% WATER 100 ML IV SCH ×3 (00:02→12:21)
[2020-09-05 00:31] LABS: CLARITY URINE CLOUDY (CLEAR); COLOR URINE YELLOW (YELLOW); KETONES URINE NEGATIVE (NEGATIVE); LEUKOCYTE ESTERASE URINE NEGATIVE (NEGATIVE); NITRITE URINE NEGATIVE (NEGATIVE); OCCULT BLOOD URINE 3+ (NEGATIVE); PROTEIN URINE 3+ (NEGATIVE); UROBILINOGEN URINE 0.2 E.U./dL (0.2-1.0)
[2020-09-05 08:00] VITALS: BP 145/71
[2020-09-05 08:08] LABS: BASOPHILS % 0.4 % (0.0-2.0); EOSINOPHILS % 0.3 % (0.0-5.0); HEMATOCRIT. 39.4 % (42.0-52.0); HEMOGLOBIN. 12.8 g/dL (14.0-18.0); LYMPHOCYTES % 8.1 % (20.0-50.0); MEAN CORPUSCULAR HEMOGLOBIN 28.9 pg (28.0-32.0); MEAN CORPUSCULAR VOLUME 88.9 fL (80.0-94.0); MEAN PLATELET VOLUME 9.2 fl (7.4-10.4); MONOCYTES % 5.5 % (2.0-8.0); NEUTROPHILS % 85.7 % (40.0-76.0); PLATELET 529 x1000/uL (130-400); RED BLOOD CELL COUNT 4.43 mill/uL (4.7-6.1); RED CELL DISTRIBUTION WIDTH 16.1 % (11.6-14.6)
[2020-09-05 08:54] LABS: CHLORIDE 106 mEq/L (98-107)
[2020-09-05] MEDS: OMEPRAZOLE 20MG CAPSULE EXTENDED RELEASE PO SCH ×2 (08:54→21:12)
[2020-09-05] MEDS: FLUCONAZOLE 100MG TABLET PO SCH (08:54)
[2020-09-05] MEDS: LEVETIRACETAM 500MG TABLET PO SCH ×2 (08:54→21:12)
[2020-09-05 09:05] LABS: PHOSPHORUS 2.4 mg/dL (2.5-4.9)
[2020-09-05 09:09] LABS: TOTAL IRON BINDING CAPACITY 280 ug/dL (250-450)
[2020-09-05 09:11] LABS: FOLIC ACID (FOLATE) SERUM 6.8 ng/mL (>5.38)
[2020-09-05 11:34] LABS: PROSTRATE SPECIFIC AG TOTAL 4.66 ng/mL (0.0-4.0)
[2020-09-05] MEDS: CEFTRIAXONE 1,000 MG in DEXTROSE 5% WATER 50 ML IV SCH (18:09)
[2020-09-05 20:00] VITALS: BP 146/64
[2020-09-05] MEDS: LACTULOSE 20G/30ML UDC PO SCH (21:11)
[2020-09-05] MEDS: ENOXAPARIN 40MG/0.4ML SYR SUBCUT SCH (21:12)
[2020-09-05] MEDS: METRONIDAZOLE 500MG TABLET PO SCH (21:12)
[2020-09-06] MEDS: LACTULOSE 20G/30ML UDC PO SCH ×3 (06:28→21:44)
[2020-09-06 07:38] LABS: PHOSPHORUS 2.6 mg/dL (2.5-4.9)
[2020-09-06 07:40] LABS: BASOPHILS % 0.9 % (0.0-2.0); EOSINOPHILS % 1.4 % (0.0-5.0); HEMATOCRIT. 39.2 % (42.0-52.0); HEMOGLOBIN. 12.8 g/dL (14.0-18.0); LYMPHOCYTES % 10.9 % (20.0-50.0); MEAN CORPUSCULAR HEMOGLOBIN 29.2 pg (28.0-32.0); MEAN CORPUSCULAR VOLUME 89.1 fL (80.0-94.0); MEAN PLATELET VOLUME 8.8 fl (7.4-10.4); MONOCYTES % 6.3 % (2.0-8.0); NEUTROPHILS % 80.5 % (40.0-76.0); PLATELET 548 x1000/uL (130-400); RED CELL DISTRIBUTION WIDTH 16.4 % (11.6-14.6)
[2020-09-06 08:00] VITALS: BP 126/66
[2020-09-06] MEDS: LEVETIRACETAM 500MG TABLET PO SCH ×2 (08:43→21:44)
[2020-09-06] MEDS: METRONIDAZOLE 500MG TABLET PO SCH ×2 (08:43→21:45)
[2020-09-06] MEDS: OMEPRAZOLE 20MG CAPSULE EXTENDED RELEASE PO SCH ×2 (08:43→21:44)
[2020-09-06] MEDS: FLUCONAZOLE 100MG TABLET PO SCH (08:43)
[2020-09-06] MEDS ORDERED: METO-539 PO (12:09)
[2020-09-06] MEDS ORDERED: ISOS60TA4 PO (12:09)
[2020-09-06] MEDS ORDERED: ASPI-986 PO (12:09)
[2020-09-06] MEDS ORDERED: SIMV-46 PO (12:09)
[2020-09-06] MEDS ORDERED: TIMO5DRO32 EACHEYE (12:18)
[2020-09-06] MEDS ORDERED: CHOL40002 PO (12:18)
[2020-09-06] MEDS ORDERED: LISI10TA5 PO (12:18)
[2020-09-06] MEDS: SODIUM CHLORIDE 0.9% 1,000 ML IV SCH (13:43)
[2020-09-06] MEDS: CEFTRIAXONE 1,000 MG in DEXTROSE 5% WATER 50 ML IV SCH (18:42)
[2020-09-06 20:00] VITALS: BP 137/66
[2020-09-06] MEDS: ENOXAPARIN 30MG/0.3ML SYR SUBCUT SCH (21:45)
[2020-09-07] MEDS: SODIUM CHLORIDE 0.9% 1,000 ML IV SCH ×2 (02:32→14:42)
[2020-09-07] MEDS: LACTULOSE 20G/30ML UDC PO SCH ×3 (06:24→21:04)
[2020-09-07 07:13] LABS: EOSINOPHILS % 1.4 % (0.0-5.0); HEMATOCRIT. 35.6 % (42.0-52.0); HEMOGLOBIN. 11.9 g/dL (14.0-18.0); LYMPHOCYTES % 18.3 % (20.0-50.0); MEAN CORPUSCULAR HEMOGLOBIN 29.6 pg (28.0-32.0); MEAN CORPUSCULAR VOLUME 88.4 fL (80.0-94.0); MEAN PLATELET VOLUME 8.5 fl (7.4-10.4); MONOCYTES % 7.1 % (2.0-8.0); NEUTROPHILS % 72.2 % (40.0-76.0); PLATELET 572 x1000/uL (130-400); RED BLOOD CELL COUNT 4.03 mill/uL (4.7-6.1); RED CELL DISTRIBUTION WIDTH 16.2 % (11.6-14.6)
[2020-09-07 08:00] VITALS: BP 135/65
[2020-09-07] MEDS: OMEPRAZOLE 20MG CAPSULE EXTENDED RELEASE PO SCH ×2 (08:47→20:41)
[2020-09-07] MEDS: FLUCONAZOLE 100MG TABLET PO SCH (08:47)
[2020-09-07] MEDS: LEVETIRACETAM 500MG TABLET PO SCH ×2 (08:47→20:41)
[2020-09-07] MEDS: METRONIDAZOLE 500MG TABLET PO SCH ×2 (08:47→20:42)
[2020-09-07] MEDS ORDERED: GUAIFENESIN 200MG/10ML SUGAR FREE UDC PO PRN (17:00)
[2020-09-07] MEDS ORDERED: BENZONATATE 100MG CAPSULE PO PRN (17:00)
[2020-09-07] MEDS: CEFTRIAXONE 1,000 MG in DEXTROSE 5% WATER 50 ML IV SCH (17:43)
[2020-09-07] MEDS ORDERED: IPRATROPIUM/ALBUTEROL 0.5-3(2.5)MG/3ML NEB HHN SCH (18:00)
[2020-09-07 20:00] VITALS: BP 156/77
[2020-09-07] MEDS: ENOXAPARIN 30MG/0.3ML SYR SUBCUT SCH (20:42)
[2020-09-08] MEDS: LACTULOSE 20G/30ML UDC PO SCH ×2 (05:36→13:21)
[2020-09-08 07:28] LABS: PHOSPHORUS 2.8 mg/dL (2.5-4.9)
[2020-09-08 08:00] VITALS: BP 152/71
[2020-09-08] MEDS: METRONIDAZOLE 500MG TABLET PO SCH ×2 (08:39→22:23)
[2020-09-08] MEDS: OMEPRAZOLE 20MG CAPSULE EXTENDED RELEASE PO SCH (08:39)
[2020-09-08] MEDS: LEVETIRACETAM 500MG TABLET PO SCH ×2 (08:39→22:07)
[2020-09-08 09:18] LABS: BASOPHILS % 1.2 % (0.0-2.0); EOSINOPHILS % 1.2 % (0.0-5.0); HEMATOCRIT. 42.2 % (42.0-52.0); HEMOGLOBIN. 13.9 g/dL (14.0-18.0); LYMPHOCYTES % 18.2 % (20.0-50.0); MEAN CORPUSCULAR HEMOGLOBIN 29.6 pg (28.0-32.0); MEAN CORPUSCULAR VOLUME 89.8 fL (80.0-94.0); MEAN PLATELET VOLUME 8.9 fl (7.4-10.4); MONOCYTES % 5.6 % (2.0-8.0); NEUTROPHILS % 73.8 % (40.0-76.0); PLATELET 556 x1000/uL (130-400); RED CELL DISTRIBUTION WIDTH 16.3 % (11.6-14.6)
[2020-09-08] MEDS: CEFTRIAXONE 1,000 MG in DEXTROSE 5% WATER 50 ML IV SCH (18:03)
[2020-09-08 19:06] LABS: 25-HYDROXY VITAMIN D3 19 ng/mL (.)
[2020-09-08 20:00] VITALS: BP 156/70
[2020-09-08] MEDS: ENOXAPARIN 30MG/0.3ML SYR SUBCUT SCH (22:09)
[2020-09-09] MEDS: FAMOTIDINE 20MG TABLET PO SCH ×2 (05:43→05:45)
[2020-09-09 08:00] VITALS: BP 149/71
[2020-09-09] MEDS: LEVETIRACETAM 500MG TABLET PO SCH ×2 (08:46→22:38)
[2020-09-09] MEDS: METRONIDAZOLE 500MG TABLET PO SCH ×2 (08:46→22:38)
[2020-09-09 08:47] LABS: BASOPHILS % 1.2 % (0.0-2.0); EOSINOPHILS % 1.7 % (0.0-5.0); HEMATOCRIT. 44.9 % (42.0-52.0); HEMOGLOBIN. 14.1 g/dL (14.0-18.0); LYMPHOCYTES % 22.6 % (20.0-50.0); MEAN CORPUSCULAR HEMOGLOBIN 28.5 pg (28.0-32.0); MEAN CORPUSCULAR VOLUME 90.5 fL (80.0-94.0); MEAN PLATELET VOLUME 8.8 fl (7.4-10.4); MONOCYTES % 6.1 % (2.0-8.0); NEUTROPHILS % 68.4 % (40.0-76.0); PLATELET 477 x1000/uL (130-400); RED BLOOD CELL COUNT 4.96 mill/uL (4.7-6.1); RED CELL DISTRIBUTION WIDTH 16.7 % (11.6-14.6)
[2020-09-09 08:59] LABS: PHOSPHORUS 2.8 mg/dL (2.5-4.9)
[2020-09-09] MEDS ORDERED: SODIUM POLYSTYRENE SULFONATE 15 G/60 ML BOT PO SCH (12:00)
[2020-09-09] MEDS ORDERED: TRAMADOL 50MG TABLET PO PRN (16:15)
[2020-09-09] MEDS: CEFTRIAXONE 1,000 MG in DEXTROSE 5% WATER 50 ML IV SCH (17:56)
[2020-09-09 20:00] VITALS: BP 141/85
[2020-09-09] MEDS: ENOXAPARIN 30MG/0.3ML SYR SUBCUT SCH (22:38)
[2020-09-10] MEDS: FAMOTIDINE 20MG TABLET PO SCH (06:48)
[2020-09-10 06:50] LABS: BASOPHILS % 1.7 % (0.0-2.0); EOSINOPHILS % 1.8 % (0.0-5.0); HEMATOCRIT. 37.6 % (42.0-52.0); HEMOGLOBIN. 12.5 g/dL (14.0-18.0); LYMPHOCYTES % 25.3 % (20.0-50.0); MEAN CORPUSCULAR HEMOGLOBIN 29.4 pg (28.0-32.0); MEAN CORPUSCULAR VOLUME 88.2 fL (80.0-94.0); MEAN PLATELET VOLUME 8.4 fl (7.4-10.4); MONOCYTES % 7.2 % (2.0-8.0); PLATELET 539 x1000/uL (130-400); RED BLOOD CELL COUNT 4.26 mill/uL (4.7-6.1)
[2020-09-10 07:35] LABS: PHOSPHORUS 2.6 mg/dL (2.5-4.9)
[2020-09-10 08:32] VITALS: BP 153/82
[2020-09-10] MEDS: METRONIDAZOLE 500MG TABLET PO SCH ×2 (09:08→22:12)
[2020-09-10] MEDS: LEVETIRACETAM 500MG TABLET PO SCH ×2 (09:08→22:12)
[2020-09-10] MEDS: SODIUM CHLORIDE 0.9% 1,000 ML IV SCH (09:09)
[2020-09-10] MEDS: CLONIDINE HCL 0.1MG/24HR PATCH TD SCH (09:12)
[2020-09-10] MEDS: FLUCONAZOLE 100MG TABLET PO SCH (09:29)
[2020-09-10] MEDS: ERGOCALCIFEROL 50000UNITS CAPSULE PO SCH (13:34)
[2020-09-10] MEDS: CEFTRIAXONE 1,000 MG in DEXTROSE 5% WATER 50 ML IV SCH (17:08)
[2020-09-10 20:00] VITALS: BP 147/79
[2020-09-10] MEDS: ENOXAPARIN 30MG/0.3ML SYR SUBCUT SCH (22:12)
[2020-09-11] MEDS: SODIUM CHLORIDE 0.9% 1,000 ML IV SCH ×2 (04:15→23:26)
[2020-09-11 08:25] VITALS: BP 137/80
[2020-09-11] MEDS: FAMOTIDINE 20MG TABLET PO SCH (09:28)
[2020-09-11] MEDS: LEVETIRACETAM 500MG TABLET PO SCH ×2 (09:28→20:13)
[2020-09-11] MEDS: METRONIDAZOLE 500MG TABLET PO SCH (09:28)
[2020-09-11 10:07] LABS: BASOPHILS % 0.7 % (0.0-2.0); EOSINOPHILS % 1.5 % (0.0-5.0); HEMATOCRIT. 42.4 % (42.0-52.0); HEMOGLOBIN. 13.7 g/dL (14.0-18.0); MEAN PLATELET VOLUME 8.4 fl (7.4-10.4); MONOCYTES % 5.8 % (2.0-8.0); PLATELET 504 x1000/uL (130-400); RED BLOOD CELL COUNT 4.71 mill/uL (4.7-6.1); RED CELL DISTRIBUTION WIDTH 16.8 % (11.6-14.6)
[2020-09-11 10:30] LABS: PHOSPHORUS 2.6 mg/dL (2.5-4.9)
[2020-09-11] MEDS: CEFTRIAXONE 1,000 MG in DEXTROSE 5% WATER 50 ML IV SCH (17:58)
[2020-09-11] MEDS: FLUCONAZOLE 100MG TABLET PO SCH (17:58)
[2020-09-11 20:00] VITALS: BP 156/76
[2020-09-11] MEDS: ENOXAPARIN 30MG/0.3ML SYR SUBCUT SCH (20:13)
[2020-09-11] MEDS: AMOXICILLIN/POTASSIUM CLAVULANATE 500/125MG TAB PO SCH (20:13)
[2020-09-11] MEDS ORDERED: METRONIDAZOLE 500MG TABLET PO SCH (21:00)
[2020-09-12] MEDS: FAMOTIDINE 20MG TABLET PO SCH ×2 (06:08→06:13)
[2020-09-12 08:00] VITALS: BP 151/80
[2020-09-12] MEDS: AMOXICILLIN/POTASSIUM CLAVULANATE 500/125MG TAB PO SCH ×2 (08:29→20:40)
[2020-09-12] MEDS: FLUCONAZOLE 100MG TABLET PO SCH (08:29)
[2020-09-12] MEDS: LEVETIRACETAM 500MG TABLET PO SCH ×2 (08:30→20:40)
[2020-09-12] MEDS: LOSARTAN POTASSIUM 25 MG TABLET PO SCH (12:11)
[2020-09-12 15:34] LABS: BASOPHILS % 1.1 % (0.0-2.0); EOSINOPHILS % 1.8 % (0.0-5.0); HEMATOCRIT. 44.7 % (42.0-52.0); HEMOGLOBIN. 14.5 g/dL (14.0-18.0); LYMPHOCYTES % 28.4 % (20.0-50.0); MEAN CORPUSCULAR HEMOGLOBIN 28.9 pg (28.0-32.0); MEAN CORPUSCULAR VOLUME 88.9 fL (80.0-94.0); MEAN PLATELET VOLUME 8.5 fl (7.4-10.4); MONOCYTES % 6.5 % (2.0-8.0); NEUTROPHILS % 62.2 % (40.0-76.0); PLATELET 434 x1000/uL (130-400); RED BLOOD CELL COUNT 5.03 mill/uL (4.7-6.1); RED CELL DISTRIBUTION WIDTH 16.8 % (11.6-14.6)
[2020-09-12 15:50] LABS: PHOSPHORUS 2.9 mg/dL (2.5-4.9)
[2020-09-12] MEDS ORDERED: CEFTRIAXONE 1,000 MG in DEXTROSE 5% WATER 50 ML IV SCH (18:00)
[2020-09-12 20:00] VITALS: BP 151/74
[2020-09-12] MEDS: ENOXAPARIN 30MG/0.3ML SYR SUBCUT SCH (20:40)
[2020-09-12] MEDS: SODIUM CHLORIDE 0.9% 1,000 ML IV SCH (20:51)
[2020-09-13] MEDS: FAMOTIDINE 20MG TABLET PO SCH (06:10)
[2020-09-13 08:00] VITALS: BP 152/74
[2020-09-13 08:07] LABS: BASOPHILS % 1.5 % (0.0-2.0); EOSINOPHILS % 2.3 % (0.0-5.0); HEMATOCRIT. 38.5 % (42.0-52.0); HEMOGLOBIN. 12.4 g/dL (14.0-18.0); MEAN CORPUSCULAR HEMOGLOBIN 28.9 pg (28.0-32.0); MEAN CORPUSCULAR VOLUME 89.6 fL (80.0-94.0); MEAN PLATELET VOLUME 9.1 fl (7.4-10.4); MONOCYTES % 7.3 % (2.0-8.0); NEUTROPHILS % 57.9 % (40.0-76.0); PLATELET 385 x1000/uL (130-400); RED BLOOD CELL COUNT 4.29 mill/uL (4.7-6.1); RED CELL DISTRIBUTION WIDTH 16.5 % (11.6-14.6)
[2020-09-13 08:35] LABS: PHOSPHORUS 2.5 mg/dL (2.5-4.9)
[2020-09-13] MEDS: LOSARTAN POTASSIUM 25 MG TABLET PO SCH (08:46)
[2020-09-13] MEDS: AMOXICILLIN/POTASSIUM CLAVULANATE 500/125MG TAB PO SCH ×2 (08:46→20:23)
[2020-09-13] MEDS: FLUCONAZOLE 100MG TABLET PO SCH (08:46)
[2020-09-13] MEDS: LEVETIRACETAM 500MG TABLET PO SCH ×2 (08:46→20:23)
[2020-09-13] MEDS: SODIUM CHLORIDE 0.9% 1,000 ML IV SCH (15:24)
[2020-09-13 20:00] VITALS: BP 112/79
[2020-09-13] MEDS: ENOXAPARIN 30MG/0.3ML SYR SUBCUT SCH (20:22)
[2020-09-14] MEDS: FAMOTIDINE 20MG TABLET PO SCH (06:00)
[2020-09-14 08:00] VITALS: BP 150/80
[2020-09-14 08:28] LABS: BASOPHILS % 1.3 % (0.0-2.0); EOSINOPHILS % 2.2 % (0.0-5.0); HEMATOCRIT. 43.7 % (42.0-52.0); HEMOGLOBIN. 14.4 g/dL (14.0-18.0); LYMPHOCYTES % 29.5 % (20.0-50.0); MEAN CORPUSCULAR HEMOGLOBIN 29.4 pg (28.0-32.0); MEAN CORPUSCULAR VOLUME 89.4 fL (80.0-94.0); MEAN PLATELET VOLUME 9.4 fl (7.4-10.4); MONOCYTES % 8.5 % (2.0-8.0); NEUTROPHILS % 58.5 % (40.0-76.0); PLATELET 333 x1000/uL (130-400); RED BLOOD CELL COUNT 4.88 mill/uL (4.7-6.1); RED CELL DISTRIBUTION WIDTH 16.6 % (11.6-14.6)
[2020-09-14] MEDS: LOSARTAN POTASSIUM 25 MG TABLET PO SCH (08:59)
[2020-09-14] MEDS: LEVETIRACETAM 500MG TABLET PO SCH ×2 (08:59→22:07)
[2020-09-14] MEDS: FLUCONAZOLE 100MG TABLET PO SCH (08:59)
[2020-09-14] MEDS: AMOXICILLIN/POTASSIUM CLAVULANATE 500/125MG TAB PO SCH ×2 (08:59→21:59)
[2020-09-14 09:24] LABS: PHOSPHORUS 2.1 mg/dL (2.5-4.9)
[2020-09-14] MEDS: SODIUM CHLORIDE 0.9% 1,000 ML IV SCH (11:32)
[2020-09-14] MEDS ORDERED: SODIUM POLYSTYRENE SULFONATE 15 G/60 ML BOT PO NR (13:00)
[2020-09-14] MEDS ORDERED: SODIUM PHOS,M-BASIC-D-BASIC 15 MM in DEXT 5% WATER 245 ML IV ONE (14:00)
[2020-09-14 20:00] VITALS: BP 161/71
[2020-09-14] MEDS: ENOXAPARIN 30MG/0.3ML SYR SUBCUT SCH (22:02)
[2020-09-15] MEDS: FAMOTIDINE 20MG TABLET PO SCH (06:12)
[2020-09-15 07:38] LABS: BASOPHILS % 1.9 % (0.0-2.0); EOSINOPHILS % 3.2 % (0.0-5.0); HEMATOCRIT. 40.6 % (42.0-52.0); HEMOGLOBIN. 13.2 g/dL (14.0-18.0); LYMPHOCYTES % 29.1 % (20.0-50.0); MEAN CORPUSCULAR HEMOGLOBIN 28.8 pg (28.0-32.0); MEAN CORPUSCULAR VOLUME 88.6 fL (80.0-94.0); MEAN PLATELET VOLUME 8.8 fl (7.4-10.4); MONOCYTES % 8.2 % (2.0-8.0); NEUTROPHILS % 57.6 % (40.0-76.0); PLATELET 342 x1000/uL (130-400); RED BLOOD CELL COUNT 4.59 mill/uL (4.7-6.1); RED CELL DISTRIBUTION WIDTH 16.5 % (11.6-14.6)
[2020-09-15 07:51] LABS: PHOSPHORUS 2.8 mg/dL (2.5-4.9)
[2020-09-15 07:57] VITALS: BP 153/83
[2020-09-15] MEDS: AMLODIPINE 5MG TABLET PO SCH ×2 (09:04→21:58)
[2020-09-15] MEDS: FLUCONAZOLE 100MG TABLET PO SCH (09:05)
[2020-09-15] MEDS: LEVETIRACETAM 500MG TABLET PO SCH ×2 (09:05→21:59)
[2020-09-15] MEDS: AMOXICILLIN/POTASSIUM CLAVULANATE 500/125MG TAB PO SCH ×2 (09:05→22:08)
[2020-09-15 20:00] VITALS: BP 155/82
[2020-09-15] MEDS: ENOXAPARIN 30MG/0.3ML SYR SUBCUT SCH (22:00)
[2020-09-16] MEDS: FAMOTIDINE 20MG TABLET PO SCH (06:18)
[2020-09-16 08:00] VITALS: BP 128/74
[2020-09-16 08:55] LABS: BASOPHILS % 1.5 % (0.0-2.0); EOSINOPHILS % 2.3 % (0.0-5.0); HEMATOCRIT. 43.1 % (42.0-52.0); LYMPHOCYTES % 33.1 % (20.0-50.0); MEAN CORPUSCULAR HEMOGLOBIN 28.4 pg (28.0-32.0); MEAN CORPUSCULAR VOLUME 87.4 fL (80.0-94.0); MEAN PLATELET VOLUME 8.7 fl (7.4-10.4); MONOCYTES % 8.9 % (2.0-8.0); NEUTROPHILS % 54.2 % (40.0-76.0); PLATELET 324 x1000/uL (130-400); RED BLOOD CELL COUNT 4.94 mill/uL (4.7-6.1); RED CELL DISTRIBUTION WIDTH 16.8 % (11.6-14.6)
[2020-09-16 09:08] LABS: PHOSPHORUS 2.6 mg/dL (2.5-4.9)
[2020-09-16] MEDS: AMOXICILLIN/POTASSIUM CLAVULANATE 500/125MG TAB PO SCH ×2 (09:23→22:50)
[2020-09-16] MEDS: FLUCONAZOLE 100MG TABLET PO SCH (09:23)
[2020-09-16] MEDS: AMLODIPINE 5MG TABLET PO SCH ×2 (09:23→22:46)
[2020-09-16] MEDS: LEVETIRACETAM 500MG TABLET PO SCH ×2 (09:23→22:46)
[2020-09-16 20:00] VITALS: BP 141/70
[2020-09-16] MEDS: ENOXAPARIN 30MG/0.3ML SYR SUBCUT SCH (22:45)
[2020-09-17] MEDS: FAMOTIDINE 20MG TABLET PO SCH (05:49)
[2020-09-17 08:00] VITALS: BP 127/78
[2020-09-17 08:01] LABS: EOSINOPHILS % 2.7 % (0.0-5.0); HEMOGLOBIN. 13.1 g/dL (14.0-18.0); LYMPHOCYTES % 32.4 % (20.0-50.0); MEAN CORPUSCULAR HEMOGLOBIN 28.9 pg (28.0-32.0); MEAN CORPUSCULAR VOLUME 88.2 fL (80.0-94.0); MEAN PLATELET VOLUME 9.2 fl (7.4-10.4); MONOCYTES % 8.4 % (2.0-8.0); NEUTROPHILS % 54.5 % (40.0-76.0); PLATELET 325 x1000/uL (130-400); RED BLOOD CELL COUNT 4.53 mill/uL (4.7-6.1); RED CELL DISTRIBUTION WIDTH 16.3 % (11.6-14.6)
[2020-09-17] MEDS: AMLODIPINE 5MG TABLET PO SCH ×2 (08:07→20:28)
[2020-09-17] MEDS: FLUCONAZOLE 100MG TABLET PO SCH (08:07)
[2020-09-17] MEDS: LEVETIRACETAM 500MG TABLET PO SCH ×2 (08:07→20:26)
[2020-09-17] MEDS: AMOXICILLIN/POTASSIUM CLAVULANATE 500/125MG TAB PO SCH ×2 (08:07→20:26)
[2020-09-17] MEDS: CLONIDINE HCL 0.1MG/24HR PATCH TD SCH (08:10)
[2020-09-17 08:23] LABS: PHOSPHORUS 2.7 mg/dL (2.5-4.9)
[2020-09-17] MEDS ORDERED: MAGNESIUM 2 G PREMIX 50 ML IV NR (12:00)
[2020-09-17] MEDS: ERGOCALCIFEROL 50000UNITS CAPSULE PO SCH (12:44)
[2020-09-17] MEDS ORDERED: IBUPROFEN 400MG TABLET PO PRN (15:15)
[2020-09-17 20:00] VITALS: BP 132/67
[2020-09-17] MEDS: ENOXAPARIN 30MG/0.3ML SYR SUBCUT SCH (20:26)
[2020-09-18] MEDS: FAMOTIDINE 20MG TABLET PO SCH (06:10)
[2020-09-18 07:47] VITALS: BP 124/66
[2020-09-18] MEDS: LEVETIRACETAM 500MG TABLET PO SCH ×2 (08:35→20:31)
[2020-09-18] MEDS: AMLODIPINE 5MG TABLET PO SCH ×2 (08:36→20:33)
[2020-09-18] MEDS ORDERED: BARIUM SULFATE 176 GM SUSP.RECON ONE (13:05)
[2020-09-18 20:00] VITALS: BP 139/82
[2020-09-18] MEDS: ENOXAPARIN 30MG/0.3ML SYR SUBCUT SCH (20:31)
[2020-09-19] MEDS: FAMOTIDINE 20MG TABLET PO SCH (06:07)
[2020-09-19 08:00] VITALS: BP 131/65
[2020-09-19] MEDS: LEVETIRACETAM 500MG TABLET PO SCH (09:54)
[2020-09-19] MEDS: AMLODIPINE 5MG TABLET PO SCH (09:54)
[2020-09-19 11:33] LABS: BASOPHILS % 1.6 % (0.0-2.0); EOSINOPHILS % 2.3 % (0.0-5.0); HEMATOCRIT. 38.5 % (42.0-52.0); HEMOGLOBIN. 12.5 g/dL (14.0-18.0); MEAN CORPUSCULAR HEMOGLOBIN 28.3 pg (28.0-32.0); MEAN CORPUSCULAR VOLUME 87.4 fL (80.0-94.0); MEAN PLATELET VOLUME 9.1 fl (7.4-10.4); MONOCYTES % 8.5 % (2.0-8.0); NEUTROPHILS % 52.6 % (40.0-76.0); PLATELET 354 x1000/uL (130-400); RED CELL DISTRIBUTION WIDTH 16.6 % (11.6-14.6)
[2020-09-19 12:20] LABS: PHOSPHORUS 2.5 mg/dL (2.5-4.9)
[2020-09-19 17:27] VITALS: BP 129/68
== END 2020-09-19 17:53 | disposition home health service (06) | DRG 82 ==
PROVIDERS: ADMIT Physical Medicine & Rehabilitation Spinal Cord Injury Medicine; ATTEND Internal Medicine
DX: S06.5X9A Traumatic subdural hemorrhage with loss of consciousness of unspecified duration, initial encounter (principal); J18.9 Pneumonia, unspecified organism; G93.41 Metabolic encephalopathy; J96.90 Respiratory failure, unspecified, unspecified whether with hypoxia or hypercapnia; K65.9 Peritonitis, unspecified; S22.49XA Multiple fractures of ribs, unspecified side, initial encounter for closed fracture; N17.9 Acute kidney failure, unspecified; I12.9 Hypertensive chronic kidney disease with stage 1 through stage 4 chronic kidney disease, or unspecified chronic kidney disease; N18.9 Chronic kidney disease, unspecified; F03.90 Unspecified dementia, unspecified severity, without behavioral disturbance, psychotic disturbance, mood disturbance, and anxiety; F10.20 Alcohol dependence, uncomplicated; W18.30XA Fall on same level, unspecified, initial encounter; Z93.3 Colostomy status; Z87.891 Personal history of nicotine dependence; W18.39XA Other fall on same level, initial encounter; Y93.89 Activity, other specified; Y92.89 Other specified places as the place of occurrence of the external cause; Y99.8 Other external cause status
CPT/HCPCS: 36415; 71045; 74018; 74176; 74230; 80048; 80053; 81003; 82140; 82150; 82306; 82550; 82607; 82728; 82746; 83540; 83550; 83735; 84100; 84134; 84153; 84443; 85025; 92523; 92610; 92611; 93970; 97110; 97112; 97116; 97162; 97166; 97530; 97535; J0696; J1650; J2543; J3475; J3490; J7030; J7040; J7060; A5200; G0103

== ENCOUNTER 2020-09-21 05:53 | Emergency (ER) | payer MEDICARE, OTHER ==
[~2020-09-21] VITALS: Ht 182.9 cm; Wt 70.0 kg
[~2020-09-21 05:53] MED LIST: ASPI-986 PO; CHOL40002 PO; ISOS60TA4 PO; LISI10TA5 PO; METO-539 PO; SIMV-46 PO; TIMO5DRO32 EACHEYE
[2020-09-21 13:29] VITALS: BP 129/81
== END 2020-09-21 13:29 | disposition home or self-care (01) ==
LOC: ER 06:02
DX: K94.03 Colostomy malfunction (principal); Z79.899 Other long term (current) drug therapy; Z98.890 Other specified postprocedural states
CPT/HCPCS: 99285

== ENCOUNTER 2020-09-23 04:25 | Emergency (ER) | payer MEDICARE, OTHER ==
[~2020-09-23] VITALS: Ht 175.3 cm; Wt 54.0 kg
[2020-09-23 07:26] VITALS: BP 136/83
== END 2020-09-23 07:27 | disposition home or self-care (01) ==
LOC: ER 04:25
DX: R68.89 Other general symptoms and signs (principal); Z93.3 Colostomy status; Z98.890 Other specified postprocedural states; Z79.899 Other long term (current) drug therapy; Z79.82 Long term (current) use of aspirin
CPT/HCPCS: 93005; 99283